=== PATIENT | female | born 1995 | race Caucasian/White ===

== ENCOUNTER 2022-06-13 22:11 | Emergency (ER) | payer OTHER ==
[2022-06-13 22:29] VITALS: BP 120/70; PULSE 90; RESP 18; TEMP 97.7; BMI 47.8
[2022-06-13] MEDS ORDERED: ACETAMINOPHEN 500 MG TABLET (FP) PO ONE (22:58)
[2022-06-13] MEDS ORDERED: RABIES VACCINE (PCEC)/PF 2.5 UNIT/VIAL IM ONE (23:12)
[2022-06-13] MEDS ORDERED: ACETAMINOPHEN 500 MG TABLET (FP) ONE (23:38)
== END 2022-06-14 02:25 | disposition home or self-care (01) ==
LOC: JER 22:11 → JERFT 22:11 → JER 06-14 02:25
PROC: 3E0234Z Introduction of Serum, Toxoid and Vaccine into Muscle, Percutaneous Approach (ICD-10-PCS; principal; 2022-06-13)
DX: S93.409A Sprain of unspecified ligament of unspecified ankle, initial encounter (principal)
CPT/HCPCS: 73610-TC-RT-FY; 73630-TC-RT-FY; 99284-25